=== PATIENT | female | born 2000 | race Hispanic/Latino ===

== ENCOUNTER 2022-01-22 15:23 | Emergency (ER) | payer MEDICAID, OTHER ==
[~2022-01-22] VITALS: Ht 154.9 cm; Wt 68.5 kg
[2022-01-22 16:26] VITALS: BP 117/70
[2022-01-22] MEDS ORDERED: FLUT16H NASAL (17:47)
[2022-01-22] MEDS ORDERED: D-ME118S47 PO (17:47)
[2022-01-22] MEDS ORDERED: LORA10TA7 PO (17:47)
[2022-01-22] MEDS ORDERED: IBUP-2070 PO (17:47)
[2022-01-22] MEDS ORDERED: IBUPROFEN 600 MG TABLET PO ONE (18:00)
== END 2022-01-22 18:21 | disposition home or self-care (01) ==
LOC: EDH 15:23
DX: J01.90 Acute sinusitis, unspecified (principal); J06.9 Acute upper respiratory infection, unspecified; Z20.822 Contact with and (suspected) exposure to COVID-19; Z79.899 Other long term (current) drug therapy
CPT/HCPCS: 99283; 87635; 87880; 87804 ×2; C9803